=== PATIENT | female | born 1980 ===

== ENCOUNTER 2017-06-02 18:40 | Emergency (ER) | payer OTHER ==
[2017-06-02 18:48] VITALS: BP 132/66; PULSE 98; RESP 16; TEMP 98.8; O2SAT 100
[2017-06-02] MEDS ORDERED: Albuterol-Ipratrop 3 mg / 0.5 (3 ml) UD IH STA (19:11)
[2017-06-02] MEDS ORDERED: Sodium Chloride 0.9% 1,000 ML IV STA (19:11)
[2017-06-02] MEDS ORDERED: Albuterol-Ipratrop 3 mg / 0.5 (3 ml) UD INH STA (19:11)
--- NOTE | 2017-06-02 19:13 | ED PDOC ---
HPI: Chest Pain Time Seen by Provider: 06/02/17 18:51 Chief Complaint (Nursing): Chest Pain Chief Complaint (Provider): Chest pain History Per: Patient History/Exam Limitations: no limitations Current Symptoms Are (Timing): Still Present Additional Complaint(s): Chest pain left since Saturday. Dyspnea with it. Has asthma and similar. Also cough for 2 days. Has bodyaches and weakness all over. No nausea, vomit, diarrhea, weakness, headaches, dizziness. Tried nebs with no relief. Past Medical History Reviewed: Nursing Documentation, Vital Signs Vital Signs: Last Vital Signs Temp 98.8 F 06/02/17 18:47 Pulse 98 H 06/02/17 18:47 Resp 16 06/02/17 18:47 BP 132/66 06/02/17 18:47 Pulse Ox 100 06/02/17 19:19 - Medical History PMH: Asthma, Multiple Sclerosis - Surgical History Surgical History: No Surg Hx - Family History Family History: States: Unknown Family Hx - Living Arrangements Living Arrangements: With Family - Social History Current smoker - smoking cessation education provided: No Alcohol: None Drugs: Denies - Home Medications Home Medications: Ambulatory Orders Medication Instructions Recorded Albuterol Sulfate [Proair Hfa] 0.09 mg IH Q6H PRN #2 inh 06/02/17 Azithromycin [Zithromax] 250 mg PO DAILY 5 Days tab 06/02/17 Benzonatate [Tessalon Perles] 100 mg PO BID PRN 5 Days sgl 06/02/17 Ibuprofen [Motrin] 600 mg PO TID 7 Days tab 06/02/17 predniSONE [predniSONE Tab] 20 mg PO BID 5 Days tab 06/02/17 - Allergies Allergies/Adverse Reactions: Allergies Allergy/AdvReac Type Severity Reaction Status Date / Time No Known Allergies Allergy Verified 06/02/17 18:45 Review of Systems ROS Statement: Except As Marked, All Systems Reviewed And Found Negative Constitutional: Positive for: Weakness Cardiovascular: Positive for: Chest Pain Respiratory: Positive for: Cough, Shortness of Breath, Wheezing Musculoskeletal: Positive for: Other (bodyaches) Neurological: Positive for: Weakness Physical Exam - Reviewed Nursing Documentation Reviewed: Yes Vital Signs Reviewed: Yes - Physical Exam Appears: Positive for: Non-toxic, No Acute Distress Head Exam: Positive for: ATRAUMATIC, NORMAL INSPECTION, NORMOCEPHALIC Skin: Positive for: Normal Color, Warm, DRY Eye Exam: Positive for: EOMI, Normal appearance, PERRL ENT: Positive for: Normal ENT Inspection. Negative for: Nasal Congestion Neck: Positive for: Normal, Painless ROM, Supple Cardiovascular/Chest: Positive for: Regular Rate, Rhythm Respiratory: Positive for: Wheezing (mild end expiratory). Negative for: Accessory Muscle Use Gastrointestinal/Abdominal: Positive for: Normal Exam, Bowel Sounds, Soft. Negative for: Tenderness Back: Positive for: Normal Inspection. Negative for: L CVA Tenderness, R CVA Tenderness Extremity: Positive for: Normal ROM. Negative for: Tenderness, Pedal Edema Neurologic/Psych: Positive for: Alert, Oriented - Laboratory Results Result Diagrams: 06/02/17 19:30 06/02/17 19:30 Interpretation Of Abn Labs: no acute - ECG ECG: Positive for: Interpreted By Me, Viewed By Me ECG Rhythm: Positive for: Normal QRS, Normal ST Segment, Sinus Rhythm O2 Sat by Pulse Oximetry: 100 Pulse Ox Interpretation: Normal - Radiology X-Ray: Interpreted by Me, Viewed By Me X-Ray Interpretation: No Acute Disease - Progress ED Course And Treament: 925: Stable. AAOx3. No acute findings. Likely bronchitis. Feels better. Disposition - Clinical Impression Clinical Impression: Bronchitis, Chest pain - Patient ED Disposition Is Patient to be Admitted: No Counseled Patient/Family Regarding: Studies Performed, Diagnosis, Need For Followup, Rx Given - Disposition Referrals: [facility] [Outside] - 06/03/17 Disposition: Routine/Home Disposition Time: 21:26 Condition: STABLE Additional Instructions: Return if not better in 3 days. Prescriptions: Albuterol Sulfate [Proair Hfa] 0.09 mg IH Q6H PRN #2 inh PRN Reason: Wheezing Azithromycin [Zithromax] 250 mg PO DAILY 5 Days tab Benzonatate [Tessalon Perles] 100 mg PO BID PRN 5 Days sgl PRN Reason: Cough Ibuprofen [Motrin] 600 mg PO TID 7 Days tab predniSONE [predniSONE Tab] 20 mg PO BID 5 Days tab Instructions: Acute Bronchitis (ED), Chest Pain (ED) Forms: [employer] (Amharic), [facility] ED School/Work Excuse
[2017-06-02] MEDS ORDERED: Albuterol-Ipratrop 3 mg / 0.5 (3 ml) UD ONE (19:35)
[2017-06-02 19:38] LABS: BASO % 0.3 % (0.0-2.0); EOS # 0.3 K/uL (0.0-0.7); EOS % 3.7 % (0.0-4.0); HEMATOCRIT 37.1 % (34.0-47.0); LYMPH # 1.3 K/uL (1.0-4.3); LYMPH % 18.2 % (20.0-40.0); MEAN CELL VOLUME 86.2 fl (81.0-99.0); MEAN CORPUSCULAR HEMOGLOBIN 29.4 pg (27.0-31.0); MEAN CORPUSCULAR HGB CONC 34.1 g/dL (33.0-37.0); MEAN PLATELET VOLUME 7.1 fl (7.2-11.7); MONO # 0.8 K/uL (0.0-0.8); MONO % 10.5 % (0.0-10.0); NEUT % 67.3 % (50.0-75.0); RED CELL DISTRIBUTION WIDTH 14.3 % (11.5-14.5); WHITE BLOOD COUNT 7.4 K/uL (4.8-10.8)
[2017-06-02 19:48] LABS: ALB/GLOB RATIO 1.4 (1.0-2.1); ALKALINE PHOSPHATASE 77 U/L (38-126); ALT/SGPT 38 U/L (9-52); AST/SGOT 24 U/L (14-36); BILIRUBIN,TOTAL 0.2 mg/dl (0.2-1.3); BLOOD UREA NITROGEN 14 mg/dl (7-17); CALCIUM 8.6 mg/dL (8.4-10.2); CARBON DIOXIDE 27 mmol/L (22-30); CHLORIDE 105 mmol/L (98-107); GFR AFRICAN-AMERICAN > 60; GLUCOSE,RANDOM 141 mg/dL (65-105); POTASSIUM 4.1 MMOL/L (3.6-5.0); SODIUM 140 mmol/l (132-148); TOTAL PROTEIN 7.5 G/DL (6.3-8.2)
--- NOTE | 2017-06-03 07:06 | CARD ---
APPROVED REPORT EKG Measurement Heart [id number] <Conclusion> Sinus tachycardia Otherwise normal ECG
--- NOTE | 2017-06-03 12:07 | RAD ---
HISTORY: dyspnea COMPARISON: No prior. FINDINGS: LUNGS: No active pulmonary disease. PLEURA: No significant pleural effusion identified, no pneumothorax apparent. CARDIOVASCULAR: Normal. OSSEOUS STRUCTURES: No significant abnormalities. VISUALIZED UPPER ABDOMEN: Normal. OTHER FINDINGS: None. IMPRESSION: No active disease.
== END 2017-06-02 21:54 | disposition home or self-care (01) ==
LOC: H.ER 18:40
DX: J40 Bronchitis, not specified as acute or chronic (principal); J45.909 Unspecified asthma, uncomplicated; G35 Multiple sclerosis
CPT/HCPCS: 71010; 80053; 81025; 84484; 85025; 93005; 94640; 96374; 99283; J2930; J7040

== ENCOUNTER 2018-01-22 12:03 | Emergency (ER) | payer OTHER ==
[2018-01-22 12:15] VITALS: BP 105/70; PULSE 71; RESP 16; TEMP 98.1; O2SAT 100
[2018-01-22] MEDS ORDERED: Sodium Chloride 0.9% 1,000 ML IV STA (13:35)
[2018-01-22 14:10] LABS: BASO % 0.3 % (0.0-2.0); EOS # 0.2 K/uL (0.0-0.7); EOS % 2.6 % (0.0-4.0); HEMOGLOBIN 13.4 g/dL (12.0-16.0); LYMPH # 1.1 K/uL (1.0-4.3); LYMPH % 18.1 % (20.0-40.0); MEAN CELL VOLUME 88.2 fl (81.0-99.0); MEAN CORPUSCULAR HEMOGLOBIN 30.9 pg (27.0-31.0); MEAN PLATELET VOLUME 7.5 fl (7.2-11.7); MONO # 0.8 K/uL (0.0-0.8); MONO % 13.1 % (0.0-10.0); NEUT # 4.1 K/uL (1.8-7.0); NEUT % 65.9 % (50.0-75.0); NRBC % 0.1 % (0.0-0.0); RBC 4.33 Mil/uL (3.80-5.20); RED CELL DISTRIBUTION WIDTH 14.2 % (11.5-14.5); WHITE BLOOD COUNT 6.2 K/uL (4.8-10.8)
--- NOTE | 2018-01-22 14:11 | ED PDOC ---
HPI:Nausea, Vomiting, Diarrhea Time Seen by Provider: 01/22/18 12:20 Chief Complaint (Nursing): GI Problem Chief Complaint (Provider): Diarrhea History Per: Patient History/Exam Limitations: no limitations Onset/Duration Of Symptoms: Days (x3) Current Symptoms Are (Timing): Still Present Associated Symptoms: Fever (subjective), Diarrhea (watery). denies: Vomiting Additional Complaint(s): Lili Uriarte is a 37 year old female, with a past medical history of MS, who presents to the emergency department complaining of a nonbloody watery diarrhea onset for x3 days. Patient states on Saturday she was in [facility] and came back on Saturday. Patient also reports a subjective fever but denies any vomiting, bloody stools or abdominal pain. No further medical complaints. PMD: Ben Prabhakar Of note patient follows up with Dr. Arzate for his MS Past Medical History Reviewed: Historical Data, Nursing Documentation, Vital Signs Vital Signs: Last Vital Signs Temp 98.1 F 01/22/18 12:11 Pulse 71 01/22/18 12:11 Resp 16 01/22/18 12:11 BP 105/70 01/22/18 12:11 Pulse Ox 100 01/22/18 12:11 - Medical History PMH: Asthma, Multiple Sclerosis - Surgical History Surgical History: No Surg Hx - Family History Family History: States: Unknown Family Hx - Social History Current smoker - smoking cessation education provided: No Alcohol: None Drugs: Denies - Home Medications Home Medications: Ambulatory Orders Medication Instructions Recorded Albuterol Sulfate [Proair Hfa] 0.09 mg IH Q6H PRN #2 inh 06/02/17 Azithromycin [Zithromax] 250 mg PO DAILY 5 Days tab 06/02/17 Benzonatate [Tessalon Perles] 100 mg PO BID PRN 5 Days sgl 06/02/17 Ibuprofen [Motrin] 600 mg PO TID 7 Days tab 06/02/17 predniSONE [predniSONE Tab] 20 mg PO BID 5 Days tab 06/02/17 Ondansetron [Zofran] 4 mg PO Q6H PRN #10 tab 01/22/18 - Allergies Allergies/Adverse Reactions: Allergies Allergy/AdvReac Type Severity Reaction Status Date / Time No Known Allergies Allergy Verified 01/22/18 12:11 Review of Systems ROS Statement: Except As Marked, All Systems Reviewed And Found Negative Constitutional: Positive for: Fever (subjective) Gastrointestinal: Positive for: Diarrhea (nonbloody, watery). Negative for: Vomiting, Abdominal Pain Physical Exam - Reviewed Nursing Documentation Reviewed: Yes Vital Signs Reviewed: Yes - Physical Exam Appears: Positive for: Non-toxic, No Acute Distress Head Exam: Positive for: ATRAUMATIC, NORMAL INSPECTION, NORMOCEPHALIC Skin: Positive for: Normal Color, Warm, Dry Eye Exam: Positive for: Normal appearance, EOMI, PERRL ENT: Positive for: Normal ENT Inspection Neck: Positive for: Painless ROM Cardiovascular/Chest: Positive for: Regular Rate, Rhythm. Negative for: Murmur Respiratory: Positive for: Normal Breath Sounds. Negative for: Respiratory Distress Gastrointestinal/Abdominal: Positive for: Normal Exam, Bowel Sounds, Soft. Negative for: Tenderness, Organomegaly, Mass, Distended, Guarding, Rebound, Hernia, Asicites Back: Positive for: Normal Inspection Extremity: Positive for: Normal ROM (upper and lower extremities). Negative for : Deformity, Swelling Neurologic/Psych: Positive for: Alert, Oriented. Negative for: Motor/Sensory Deficits - Laboratory Results Result Diagrams: 01/22/18 13:55 01/22/18 13:55 - ECG O2 Sat by Pulse Oximetry: 100 (RA) Pulse Ox Interpretation: Normal Medical Decision Making Medical Decision Making: Time: 12:41 Initial Impression: diarrhea r/o viral illness, electrolyte abnormality and UTI Initial Plan: --CMP --Lipase --CBC w/ differential --Sodium Chloride 1,000 ml IV 999 mls/hr --Zofran Inj 4 mg IV --Urine culture --POC Urine --Urinalysis --Reevaluation Time: 1711 --Upon provider reevaluation, patient is feeling better, tolerating PO, abdominal exam bening, medically stable and requires no further treatment in the ED at this time. Patient had refused to give stool sample, but recommended to follow up with [facility].I. doctor and PCP in 1-2 days. Patient will be discharged home with Rx for Zofran PRN. Counseling was provided and all questions were answered regarding diagnosis. There is agreement to discharge plan. Return if symptoms persist or worsen. Clinical Impression: Viral Diarrhea ----- Scribe Attestation: Documented by Yang Ortiz, acting as a scribe for Maximiliano Blake MD. Provider Scribe Attestation: All medical record entries made by the Scribe were at my direction and personally dictated by me. I have reviewed the chart and agree that the record accurately reflects my personal performance of the history, physical exam, medical decision making, and the department course for this patient. I have also personally directed, reviewed, and agree with the discharge instructions and disposition. Disposition - Clinical Impression Clinical Impression: Viral diarrhea - Patient ED Disposition Is Patient to be Admitted: No Counseled Patient/Family Regarding: Studies Performed, Diagnosis, Need For Followup, Rx Given - Disposition Disposition: Routine/Home Disposition Time: 17:12 Condition: IMPROVED Additional Instructions: follow up with Dr Rachel in 2 days return to the ED with any worsening or concerning symptoms Prescriptions: Ondansetron [Zofran] 4 mg PO Q6H PRN #10 tab PRN Reason: Nausea/Vomiting Instructions: Viral Gastroenteritis, Adult (DC) Forms: [employer] (Persian)
[2018-01-22 14:22] LABS: SQUAMOUS EPITHIAL 3 /hpf (0-5); URINE BACTERIA RARE (<OCC); URINE BILIRUBIN NEGATIVE (NEGATIVE); URINE BLOOD SMALL (NEGATIVE); URINE CLARITY SLIGHTY-CLOUDY (Clear); URINE COLOR YELLOW (YELLOW); URINE GLUCOSE (UA) NEG (Normal); URINE LEUKOCYTE ESTERASE NEG Leu/uL (Negative); URINE PROTEIN NEGATIVE (NEGATIVE); URINE UROBILINOGEN 0.2-1.0 mg/dL (0.2-1.0)
[2018-01-22 14:47] LABS: ALBUMIN 4.6 g/dL (3.5-5.0); ALT/SGPT 31 U/L (9-52); AST/SGOT 34 U/L (14-36); BLOOD UREA NITROGEN 9 mg/dl (7-17); CALCIUM 8.8 mg/dL (8.4-10.2); GFR AFRICAN-AMERICAN > 60; GFR NON-AFRICAN AMERICAN > 60; LIPASE 138 U/L (23-300)
[2018-01-22 14:50] LABS: ALB/GLOB RATIO 1.4 (1.0-2.1)
== END 2018-01-22 18:05 | disposition home or self-care (01) ==
LOC: H.ER 12:03
DX: R19.7 Diarrhea, unspecified (principal); A08.4 Viral intestinal infection, unspecified; G35 Multiple sclerosis
CPT/HCPCS: 80053; 81003; 81025; 83690; 85025; 87086; 87177; 87209; 87230; 96374; 99284; J2405; J7030

== ENCOUNTER 2018-09-18 18:13 | Emergency (ER) | payer OTHER ==
[2018-09-18 18:25] VITALS: BP 137/83; RESP 18; TEMP 98.8; O2SAT 99
[2018-09-18] MEDS ORDERED: Albuterol-Ipratrop 3 mg / 0.5 (3 ml) UD INH STA (19:20)
--- NOTE | 2018-09-18 19:21 | ED PDOC ---
HPI: Influenza Time Seen by Provider: 09/18/18 19:07 Chief Complaint: Cough, Cold, Congestion Past Medical History Vital Signs: Last Vital Signs Temp 98.8 F 09/18/18 18:23 Pulse 89 09/18/18 18:23 Resp 18 09/18/18 18:23 BP 137/83 09/18/18 18:23 Pulse Ox 99 09/18/18 18:23 - Medical History PMH: Asthma, Multiple Sclerosis - Family History Family History: States: Unknown Family Hx - Home Medications Home Medications: Ambulatory Orders Medication Instructions Recorded Albuterol Sulfate [Proair Hfa] 0.09 mg IH Q6H PRN #2 inh 06/02/17 Azithromycin [Zithromax] 250 mg PO DAILY 5 Days tab 06/02/17 Benzonatate [Tessalon Perles] 100 mg PO BID PRN 5 Days sgl 06/02/17 Ibuprofen [Motrin] 600 mg PO TID 7 Days tab 06/02/17 predniSONE [predniSONE Tab] 20 mg PO BID 5 Days tab 06/02/17 Ondansetron [Zofran] 4 mg PO Q6H PRN #10 tab 01/22/18 - Allergies Allergies/Adverse Reactions: Allergies Allergy/AdvReac Type Severity Reaction Status Date / Time No Known Allergies Allergy Verified 09/18/18 18:22 - ECG O2 Sat by Pulse Oximetry: 99 Disposition - Disposition
--- NOTE | 2018-09-18 19:23 | ED PDOC ---
HPI: SOB/CHF/COPD Time Seen by Provider: 09/18/18 19:07 Chief Complaint (Nursing): Cough, Cold, Congestion Chief Complaint (Provider): Shortness of breath and chest tightness History Per: Patient History/Exam Limitations: no limitations Onset/Duration Of Symptoms: Days (x3) Current Symptoms Are (Timing): Still Present Additional Complaint(s): 38 year old female presents to the ED stating, Saturday, she woke up with cough, chest tightness, and chest pain radiating up to the upper back. She reports feeling shortness of breath. Patient states she has been using her Albuterol nebulizer without any relief. She reports cough is productive of nonbloody sputum and has a sore throat which began after coughing started. She further states, on September 05, she took a trip to [facility] and returned on September 08. Denies previous admission for asthma, fever, chills, hemoptysis, leg pain, history of DVT or PE, or recent surgery. PMD: none provided Past Medical History Reviewed: Historical Data, Nursing Documentation, Vital Signs Vital Signs: Last Vital Signs Temp 98.8 F 09/18/18 18:23 Pulse 89 09/18/18 18:23 Resp 18 09/18/18 18:23 BP 137/83 09/18/18 18:23 Pulse Ox 99 09/18/18 18:23 - Medical History PMH: Asthma, Multiple Sclerosis - Surgical History Surgical History: No Surg Hx - Family History Family History: States: Unknown Family Hx - Home Medications Home Medications: Ambulatory Orders Medication Instructions Recorded Albuterol Sulfate [Proair Hfa] 0.09 mg IH Q6H PRN #2 inh 06/02/17 Azithromycin [Zithromax] 250 mg PO DAILY 5 Days tab 06/02/17 Benzonatate [Tessalon Perles] 100 mg PO BID PRN 5 Days sgl 06/02/17 Ibuprofen [Motrin] 600 mg PO TID 7 Days tab 06/02/17 predniSONE [predniSONE Tab] 20 mg PO BID 5 Days tab 06/02/17 Ondansetron [Zofran] 4 mg PO Q6H PRN #10 tab 01/22/18 - Allergies Allergies/Adverse Reactions: Allergies Allergy/AdvReac Type Severity Reaction Status Date / Time No Known Allergies Allergy Verified 09/18/18 18:22 Review of Systems ROS Statement: Except As Marked, All Systems Reviewed And Found Negative Constitutional: Negative for: Fever, Chills ENT: Positive for: Throat Pain Cardiovascular: Positive for: Chest Pain (and chest tightness radiating to the upper back) Respiratory: Positive for: Cough, Shortness of Breath. Negative for: Hemoptysis Musculoskeletal: Negative for: Leg Pain Physical Exam - Reviewed Nursing Documentation Reviewed: Yes Vital Signs Reviewed: Yes - Physical Exam Appears: Positive for: No Acute Distress (Actively coughing) Skin: Positive for: Normal Color, Warm, Dry Eye Exam: Positive for: Normal appearance ENT: Positive for: Normal ENT Inspection Cardiovascular/Chest: Positive for: Regular Rate, Rhythm Respiratory: Positive for: Normal Breath Sounds. Negative for: Wheezing, Respiratory Distress Extremity: Negative for: Calf Tenderness (bilaterally) Neurological/Psych: Positive for: Alert, Oriented (x3), Other (Speaking in full sentences) - Laboratory Results Result Diagrams: 09/18/18 19:25 09/18/18 19:25 - ECG ECG: Positive for: Interpreted By Me ECG Rhythm: Positive for: Sinus Rhythm. Negative for: ST/T Changes Rate: 77 O2 Sat by Pulse Oximetry: 99 (RA) Pulse Ox Interpretation: Normal Medical Decision Making Medical Decision Making: Initial Impression: Shortness of breath Initial Plan: --ECG --CMP --Troponin --ED urine --CBC --D Dimer --Chest X-ray --Albuterol 3mL INH --Peak flow Scribe Attestation: Documented by Rashid Gandhi acting as a scribe for Edin HENLEY Provider Scribe Attestation: All medical record entries made by the Scribe were at my direction and personally dictated by me. I have reviewed the chart and agree that the record accurately reflects my personal performance of the history, physical exam, medical decision making, and the department course for this patient. I have also personally directed, reviewed, and agree with the discharge instructions and disposition. Disposition - Clinical Impression Clinical Impression: Cough, Dyspnea - Patient ED Disposition Is Patient to be Admitted: Transfer of Care (Signed out to Steffany GOMES pending labs, CXR, EKG, re-evaluation, and final disposition.) - Disposition Disposition Time: 20:00 Condition: FAIR Forms: [employer] (Palestinian)
[2018-09-18] MEDS ORDERED: Albuterol-Ipratrop 3 mg / 0.5 (3 ml) UD ONE (19:34)
[2018-09-18 19:41] LABS: BASO % 0.4 % (0.0-2.0); EOS # 0.3 K/uL (0.0-0.7); HEMOGLOBIN 12.7 g/dL (12.0-16.0); LYMPH # 1.5 K/uL (1.0-4.3); MEAN CELL VOLUME 87.8 fl (81.0-99.0); MEAN CORPUSCULAR HEMOGLOBIN 29.4 pg (27.0-31.0); MEAN CORPUSCULAR HGB CONC 33.5 g/dL (33.0-37.0); MEAN PLATELET VOLUME 7.7 fl (7.2-11.7); MONO # 0.9 K/uL (0.0-0.8); MONO % 10.4 % (0.0-10.0); NEUT % 69.2 % (50.0-75.0); RBC 4.3 Mil/uL (3.80-5.20); RED CELL DISTRIBUTION WIDTH 13.6 % (11.5-14.5); WHITE BLOOD COUNT 8.7 K/uL (4.8-10.8)
[2018-09-18 19:56] LABS: ALB/GLOB RATIO 1.4 (1.0-2.1); ALBUMIN 4.5 g/dL (3.5-5.0); ALT/SGPT 30 U/L (9-52); AST/SGOT 33 U/L (14-36); BLOOD UREA NITROGEN 12 mg/dl (7-17); CALCIUM 8.8 mg/dL (8.4-10.2); GFR NON-AFRICAN AMERICAN > 60
[2018-09-18 20:04] VITALS: PULSE 77
--- NOTE | 2018-09-18 21:19 | ED PDOC ---
- Laboratory Results Result Diagrams: 09/18/18 19:25 09/18/18 19:25 Lab Results: D-Dimer, Quantitative < 200 ng/mlDDU (0-230) 09/18/18 19:25 Troponin I < 0.0120 ng/mL (0.00-0.120) 09/18/18 19:25 Total Bilirubin 0.3 mg/dl (0.2-1.3) 09/18/18 19:25 AST 33 U/L (14-36) 09/18/18 19:25 ALT 30 U/L (9-52) 09/18/18 19:25 Alkaline Phosphatase 114 U/L (38-126) 09/18/18 19:25 Total Protein 7.6 G/DL (6.3-8.2) 09/18/18 19:25 Albumin 4.5 g/dL (3.5-5.0) 09/18/18 19:25 Globulin 3.1 gm/dL (2.2-3.9) 09/18/18 19:25 Albumin/Globulin Ratio 1.4 (1.0-2.1) 09/18/18 19:25 - ECG O2 Sat by Pulse Oximetry: 99 (RA) - Radiology X-Ray: Viewed By Nh X-Ray Interpretation: No Acute Disease - Progress ED Course And Treament: Case endorsed to field underwriter from Narciso GOMES pending labs, xray, re-eval On re-eval, patient states she is feeling better Patient educated on findings, discharged with rx Flonase, Albuterol HFA, Medrol dose vivek, tessalon perles ADvised follow up PMD within 2-3 days Return precautions given Disposition - Clinical Impression Clinical Impression: Bronchitis - POA Present On Arrival: None - Disposition Disposition: Routine/Home Disposition Time: 21:19 Condition: IMPROVED Prescriptions: Albuterol HFA [Ventolin HFA 90 mcg/actuation (8 g)] 1 puff IH Q4 PRN #1 inh PRN Reason: Wheezing Benzonatate [Tessalon Perle] 100 mg PO TID PRN #21 capsule PRN Reason: Cough Fluticasone Nasal [Flonase] 1 actuation NS BID #1 bottle Methylprednisolone [Medrol Dose Pack (21 tabs)] 4 mg PO ASDIR #21 mg Instructions: Acute Bronchitis Forms: [employer] (Panamanian)
--- NOTE | 2018-09-19 09:11 | CARD ---
APPROVED REPORT Date of service: 09/18/2018 EKG Measurement Heart [id number] DC 130P29 [id number] <Conclusion> Normal sinus rhythm Normal ECG
--- NOTE | 2018-09-19 12:58 | RAD ---
Date of service: 09/18/2018 HISTORY: Cough. COMPARISON: 06/02/2017 TECHNIQUE: Chest PA and lateral FINDINGS: LUNGS: No active pulmonary disease. PLEURA: No significant pleural effusion identified. No pneumothorax apparent. CARDIOVASCULAR: No aortic atherosclerotic calcification present. Normal cardiac size. No pulmonary vascular congestion. OSSEOUS STRUCTURES: No significant abnormalities. VISUALIZED UPPER ABDOMEN: Normal. OTHER FINDINGS: None. IMPRESSION: No active disease. No significant interval change compared to the prior examination(s).
== END 2018-09-18 21:37 | disposition home or self-care (01) ==
LOC: H.ER 18:13
DX: J40 Bronchitis, not specified as acute or chronic (principal)